=== PATIENT | male | born 1945 | race Caucasian/White ===

== ENCOUNTER 2021-11-06 13:55 | Emergency (ER) | payer MEDICARE ==
[~2021-11-06] VITALS: Ht 180.3 cm; Wt 102.1 kg
[2021-11-06] MEDS ORDERED: LIDOCAINE HCL 1% 20 ML VIAL IJ ONE (14:00)
[2021-11-06] MEDS ORDERED: LIDOCAINE HCL 2% 20 ML VIAL ONE (14:01)
[2021-11-06] MEDS ORDERED: IBUPROFEN PO (14:04)
[2021-11-06] MEDS ORDERED: ACETAMINOPHEN 325 MG TABLET ONE (14:09)
[2021-11-06] MEDS ORDERED: ACETAMINOPHEN 325 MG TABLET PO ONE (14:15)
--- NOTE | 2021-11-06 14:42 | NUR ---
Patient brought in by rescue for a ground level fall. Doctor at bedside for suturing on left front forehead.
--- NOTE | 2021-11-06 15:09 | NUR ---
patient taken down to CT scan at this time.
[2021-11-06] MEDS ORDERED: CEPH500C2 PO (16:22)
[2021-11-06] MEDS ORDERED: TDAP DIPH,PERTUSS,TET VAC/PF 0.5 ML DISP.SYRIN IM ONE ×2 (16:30→16:31)
== END 2021-11-06 17:09 | disposition home or self-care (01) ==
LOC: ER 13:55
DX: S01.81XA Laceration without foreign body of other part of head, initial encounter (principal); S80.211A Abrasion, right knee, initial encounter; W01.0XXA Fall on same level from slipping, tripping and stumbling without subsequent striking against object, initial encounter; Y92.89 Other specified places as the place of occurrence of the external cause; Z96.653 Presence of artificial knee joint, bilateral; Z96.698 Presence of other orthopedic joint implants; G62.9 Polyneuropathy, unspecified; M21.372 Foot drop, left foot; Z88.0 Allergy status to penicillin; Z91.041 Radiographic dye allergy status
CPT/HCPCS: 99285; 70450; 73564 ×2; 70486; 90715; 90471; 12013; J3490; A4663